=== PATIENT | male | born 1950 | race African-American/Black ===

== ENCOUNTER 2017-06-27 02:26 | Emergency (ER) | payer MEDICARE, MEDICAID ==
[~2017-06-27] VITALS: Ht 170.2 cm; Wt 69.0 kg
[2017-06-27 03:39] LABS: HEMATOCRIT 39.3 % (42.0-52.0); MEAN CORPUSCULAR HEMOGLOBIN 28.5 pg (28.0-32.0); MEAN CORPUSCULAR VOLUME 86.2 fL (80.0-94.0); PLATELET 218 x1000/uL (130-400); RED BLOOD CELL COUNT 4.55 mill/uL (4.7-6.1); RED CELL DISTRIBUTION WIDTH 14.4 % (11.6-14.6)
[2017-06-27 03:53] LABS: CARBON DIOXIDE 26 mEq/L (21-32); CHLORIDE 109 mEq/L (98-107)
[2017-06-27 04:06] LABS: CLARITY URINE CLOUDY (CLEAR); COLOR URINE ORANGE (YELLOW); KETONES URINE NEGATIVE (NEGATIVE); LEUKOCYTE ESTERASE URINE 1+ (NEGATIVE); NITRITE URINE NEGATIVE (NEGATIVE); OCCULT BLOOD URINE 3+ (NEGATIVE); PH URINE 5.5 (4.5-8.0); PROTEIN URINE 4+ (NEGATIVE); SPECIFIC GRAVITY URINE 1.024 (1.005-1.030)
[2017-06-27 05:18] VITALS: BP 133/76
== END 2017-06-27 05:39 | disposition home or self-care (01) ==
LOC: ER 02:26
DX: N39.0 Urinary tract infection, site not specified (principal); I10 Essential (primary) hypertension; N40.0 Benign prostatic hyperplasia without lower urinary tract symptoms; F17.290 Nicotine dependence, other tobacco product, uncomplicated; F12.10 Cannabis abuse, uncomplicated
CPT/HCPCS: 36415; 80048; 81001; 85027; 87086; 99284; 99406

== ENCOUNTER 2018-07-13 22:05 | Emergency (ER) | payer MEDICARE, MEDICAID ==
[~2018-07-13] VITALS: Ht 170.2 cm; Wt 71.9 kg
[2018-07-14] MEDS ORDERED: LIDOCAINE HCL 2% JELLY 5ML TOP ONE (04:15)
[2018-07-14] MEDS ORDERED: HYDROCODONE/ACETAMINOPHEN 10/325MG TABLET PO ONE (04:15)
[2018-07-14 04:58] LABS: HEMATOCRIT 41.5 % (42.0-52.0); MEAN CORPUSCULAR HEMOGLOBIN 24.3 pg (28.0-32.0); MEAN CORPUSCULAR VOLUME 77.6 fL (80.0-94.0); PLATELET 131 x1000/uL (130-400); RED BLOOD CELL COUNT 5.35 mill/uL (4.7-6.1); RED CELL DISTRIBUTION WIDTH 26.5 % (11.6-14.6)
[2018-07-14 05:01] LABS: CHLORIDE 111 mEq/L (98-107)
[2018-07-14 05:34] LABS: CLARITY URINE TURBID (CLEAR); COLOR URINE RED (YELLOW); KETONES URINE TRACE (NEGATIVE); LEUKOCYTE ESTERASE URINE 1+ (NEGATIVE); NITRITE URINE NEGATIVE (NEGATIVE); OCCULT BLOOD URINE 3+ (NEGATIVE); PH URINE 6.5 (4.5-8.0); PROTEIN URINE 4+ (NEGATIVE); SPECIFIC GRAVITY URINE 1.026 (1.005-1.030); UROBILINOGEN URINE 0.2 E.U./dL (0.2-1.0)
[2018-07-14] MEDS ORDERED: CEPHALEXIN 250MG CAPSULE PO ONE (06:00)
[2018-07-14 07:08] VITALS: BP 130/80
== END 2018-07-14 07:09 | disposition home or self-care (01) ==
LOC: ER 22:05
DX: N39.0 Urinary tract infection, site not specified (principal); I10 Essential (primary) hypertension; F17.200 Nicotine dependence, unspecified, uncomplicated; F12.10 Cannabis abuse, uncomplicated; Z85.46 Personal history of malignant neoplasm of prostate; Z98.890 Other specified postprocedural states
CPT/HCPCS: 36415; 51702; 85027; 99284; A4315

== ENCOUNTER 2018-07-17 02:51 | Emergency (ER) | payer MEDICARE, MEDICAID ==
[~2018-07-17] VITALS: Ht 170.2 cm; Wt 69.0 kg
[2018-07-17] MEDS ORDERED: HYDROCODONE/ACETAMINOPHEN 5/325MG TABLET PO ONE (03:45)
[2018-07-17 06:56] VITALS: BP 140/82
== END 2018-07-17 06:57 | disposition home or self-care (01) ==
LOC: ER 02:51
DX: T83.098A Other mechanical complication of other urinary catheter, initial encounter (principal); N40.1 Benign prostatic hyperplasia with lower urinary tract symptoms; C61 Malignant neoplasm of prostate; R33.8 Other retention of urine; I10 Essential (primary) hypertension; F17.200 Nicotine dependence, unspecified, uncomplicated; Y84.6 Urinary catheterization as the cause of abnormal reaction of the patient, or of later complication, without mention of misadventure at the time of the procedure; Y92.018 Other place in single-family (private) house as the place of occurrence of the external cause
CPT/HCPCS: 51702; 99284; A4315